=== PATIENT | female | born 1990 | race Caucasian/White ===

== ENCOUNTER 2018-09-04 20:09 | Inpatient (IN) ==
[2018-09-04] MEDS: ACETAMINOPHEN 500 MG TABLET PO PRN (21:57)
[2018-09-05] MEDS: LACTATED RINGERS 1,000 ML IV SCH ×3 (00:01→18:57)
[2018-09-05] MEDS ORDERED: OXYTOCIN/LR 20 UNIT/1,000 ML BAG IV PRN (00:17)
[2018-09-05 00:54] LABS: Basophils % 0.4 % (0.0-0.8); Eosinophils # 0.3 10*3/uL (0.0-0.87); Eosinophils % 2.6 % (0.00-10.9); Hematocrit 36.5 VOL% (35.7-47.0); Hemoglobin 12.1 GM/DL (12.0-16.0); Immature Granulocytes % 0.5 %; Immature Granulocytes Absolute 0.05 #; Lymphocytes # 2.8 10*3/uL (1.4-4.0); Lymphocytes % 27.1 % (21.3-54.2); Mean Corpuscular HGB Conc 33.2 GM/DL (32-36); Mean Corpuscular Hemoglobin 30 PG (27-34); Mean Corpuscular Volume 89.5 FL (87-102); Mean Platelet Volume 11.4 FL (9.6-12.0); Monocytes # 0.9 10*3/uL (0.11-0.8); Monocytes % 8.9 % (1.7-12.7); Neutrophils # 6.2 10*3/uL (1.4-7.4); Neutrophils % 60.5 % (38.7-73.9); Platelet Count 205 T/CUMM (130-400); Red Blood Count 4.08 MC/CUMM (3.8-5.5); Red Cell Distribution Width 12.5 % (9.3-17.3); White Blood Count 10.3 T/CUMM (4-12)
[2018-09-05 01:08] LABS: Alanine Aminotransferase 15 U/L (13-56); Albumin 3.1 G/DL (3.4-5.0); Alkaline Phosphatase 133 U/L (45-117); Aspartate Amino Transferase 14 U/L (0-37); Bilirubin,Total < 0.39 MG/DL (0.2-1.0); Blood Urea Nitrogen 6 MG/DL (7-18); Calcium 8.7 MG/DL (8.5-10.1); Glucose 87 MG/DL (74-106); Osmolality,Calculated 273.5 MOS/KG (273-304); Potassium 3.8 MMOL/L (3.5-5.1); Sodium 139 MMOL/L (136-145); Total Protein 6.5 G/DL (6.4-8.3)
[2018-09-05] MEDS: ACETAMINOPHEN 500 MG TABLET PO PRN (04:13)
[2018-09-05] MEDS: ONDANSETRON 4 MG/2 ML VIAL IV PRN ×2 (09:53→21:12)
[2018-09-05] MEDS: BUTORPHANOL 2 MG/ML VIAL IV PRN ×2 (09:54→14:30)
[2018-09-05] MEDS ORDERED: diphenhydrAMINE 50 MG/1 ML VIAL IV PRN ×2 (16:00)
[2018-09-05] MEDS ORDERED: FAMOTIDINE 20 MG/2 ML VIAL IV ONE (16:00)
[2018-09-05] MEDS ORDERED: ePHEDrine 50 MG/ML AMP IV PRN (16:00)
[2018-09-05] MEDS ORDERED: hydrOXYzine HCL 25 MG/1 ML VIAL IM PRN (16:00)
[2018-09-05] MEDS ORDERED: CITRIC ACID/SODIUM CITRATE 30 ML UDCUP PO ONE (16:00)
[2018-09-05] MEDS ORDERED: NALOXONE 0.4 MG/ML VIAL IV PRN (16:00)
[2018-09-05] MEDS ORDERED: fentaNYL 2 MCG/ROPIV 0.2% EPID 100 ML EPIDURAL SCH (16:00)
[2018-09-05] MEDS ORDERED: PROMETHAZINE 25 MG/1 ML VIAL IM ONE (16:00)
[2018-09-05] MEDS ORDERED: LIDOCAINE 2% 20 ML VIAL ONE (16:10)
[2018-09-05] MEDS ORDERED: ceFAZolin 2,000 MG in PREMIX 1 EACH IV ONE (18:35)
[2018-09-05] MEDS ORDERED: TERBUTALINE 1 MG/1 ML VIAL SUBCUT ONE ×2 (18:50→18:54)
[2018-09-05] MEDS ORDERED: METHYLERGONOVINE 0.2 MG/1 ML AMP ONE (19:17)
[2018-09-05] MEDS ORDERED: miSOPROStol 200 MCG TABLET ONE (19:17)
[2018-09-05] MEDS ORDERED: CARBOPROST TROMETHAMINE 250 MCG/ML AMP IM ONE (19:18)
[2018-09-05] MEDS ORDERED: HYDROCORTISONE 2.5% RECTAL CREAM 30 GM TUBE TOP PRN (19:58)
[2018-09-05] MEDS ORDERED: LANOLIN 50% CREAM 0.3 OZ TUBE TOP PRN (19:58)
[2018-09-05] MEDS ORDERED: WITCH HAZEL PADS 100/JAR TOP PRN (19:58)
[2018-09-05] MEDS ORDERED: BISACODYL 10 MG SUPP RECTAL PRN (19:58)
[2018-09-05] MEDS ORDERED: OXYTOCIN/LR 20 UNIT/1,000 ML BAG IV ONE (19:58)
[2018-09-05] MEDS ORDERED: ONDANSETRON 4 MG/2 ML VIAL IV PRN (19:58)
[2018-09-05] MEDS ORDERED: RHO(D) IMMUNE GLOBULIN 300 MCG SYRINGE IM ONE (19:58)
[2018-09-05] MEDS ORDERED: BENZOCAINE 20%/MENTHOL 0.5% SPRAY 56 GM CAN TOP PRN (19:58)
[2018-09-05] MEDS ORDERED: ACETAMINOPHEN 325 MG TABLET PO PRN (19:58)
[2018-09-05] MEDS ORDERED: DIPH/TET/ACEL PERT BOOSTER VACCINE 0.5 ML VIAL IM ONE (19:58)
[2018-09-05] MEDS ORDERED: MEASLES/MUMPS/RUBELLA VACCINE 0.5 ML VIAL SUBCUT ONE (19:58)
[2018-09-05] MEDS ORDERED: oxyCODONE/ACETAMINOPHEN 5-325 MG TABLET PO PRN (19:58)
[2018-09-05] MEDS ORDERED: MORPHINE 10 MG/10 ML VIAL ONE (20:02)
[2018-09-05] MEDS ORDERED: ONDANSETRON 4 MG/2 ML VIAL ONE (20:16)
[2018-09-05] MEDS ORDERED: PROPOFOL 200 MG/20 ML VIAL IV ONE (20:16)
[2018-09-05] MEDS ORDERED: LIDOCAINE MPF 2% /EPI 20 ML VIAL ONE (20:16)
[2018-09-05] MEDS ORDERED: MIDAZOLAM 2 MG/2 ML VIAL ONE (20:19)
[2018-09-05] MEDS ORDERED: METHYLERGONOVINE 0.2 MG/1 ML AMP IM ONE (21:13)
[2018-09-05] MEDS ORDERED: KETOROLAC 30 MG/1 ML VIAL ONE (23:08)
[2018-09-05] MEDS: KETOROLAC 30 MG/1 ML VIAL IV SCH (23:16)
[2018-09-06] MEDS: DOCUSATE SODIUM 100 MG CAPSULE PO SCH ×3 (01:19→20:21)
[2018-09-06] MEDS: ceFAZolin 1,000 MG in SYRINGE 1 EACH IV SCH ×2 (03:31→11:21)
[2018-09-06] MEDS: KETOROLAC 30 MG/1 ML VIAL IV SCH ×2 (05:34→13:29)
[2018-09-06 05:36] LABS: Basophils % 0.3 % (0.0-0.8); Eosinophils % 0.3 % (0.00-10.9); Hematocrit 31.4 VOL% (35.7-47.0); Hemoglobin 10.4 GM/DL (12.0-16.0); Immature Granulocytes % 0.3 %; Immature Granulocytes Absolute 0.04 #; Lymphocytes # 1.6 10*3/uL (1.4-4.0); Lymphocytes % 13.8 % (21.3-54.2); Mean Corpuscular HGB Conc 33.1 GM/DL (32-36); Mean Corpuscular Hemoglobin 30 PG (27-34); Monocytes # 0.8 10*3/uL (0.11-0.8); Monocytes % 6.8 % (1.7-12.7); Neutrophils # 9.1 10*3/uL (1.4-7.4); Neutrophils % 78.5 % (38.7-73.9); Platelet Count 133 T/CUMM (130-400); Red Blood Count 3.53 MC/CUMM (3.8-5.5); Red Cell Distribution Width 12.5 % (9.3-17.3); White Blood Count 11.6 T/CUMM (4-12)
[2018-09-06] MEDS ORDERED: INFLUENZA VIRUS VACCINE 0.5 ML SYRINGE IM ONE (09:00)
[2018-09-06] MEDS ORDERED: KETOROLAC 30 MG/1 ML VIAL ONE (13:24)
[2018-09-06] MEDS: oxyCODONE/ACETAMINOPHEN 5-325 MG TABLET PO PRN (17:55)
[2018-09-06] MEDS: MAGNESIUM HYDROXIDE SUSP 30 ML UDCUP PO PRN (20:21)
[2018-09-06] MEDS: SIMETHICONE CHEW 80 MG TABLET PO PRN (20:21)
[2018-09-06] MEDS: IBUPROFEN 800 MG TABLET PO PRN (20:21)
[2018-09-07] MEDS: oxyCODONE/ACETAMINOPHEN 5-325 MG TABLET PO PRN ×2 (03:55→11:16)
[2018-09-07] MEDS: IBUPROFEN 800 MG TABLET PO PRN ×2 (03:57→11:16)
[2018-09-07 07:36] VITALS: BP 124/85
[2018-09-07] MEDS: SIMETHICONE CHEW 80 MG TABLET PO PRN (08:55)
[2018-09-07] MEDS: MAGNESIUM HYDROXIDE SUSP 30 ML UDCUP PO PRN (08:55)
[2018-09-07] MEDS: DOCUSATE SODIUM 100 MG CAPSULE PO SCH (08:55)
== END 2018-09-07 13:35 | disposition home or self-care (01) | DRG 788 ==
LOC: N.LDOUT 20:09 → N.LD 20:10 → N.OB 09-05 23:02
PROVIDERS: ADMIT Specialist; ATTEND Specialist
PROC: LDCSECT (ICD-10-PCS; 2018-09-05 18:40)